=== PATIENT | male | born 1990 | race Hispanic/Latino ===

== ENCOUNTER 2024-02-25 17:52 | Emergency (ER) | payer MEDICARE, MEDICAID, SELFPAY ==
[2024-02-25 18:07] VITALS: BP 117/83
--- NOTE | 2024-02-25 18:07 | ED.PDOC.TR ---
ED Provider Triage
-
Patient seen by provider in Triage?: Seen in Triage
*Seen in triage to faciltiate intial workup*
33 yo male w/ hx of autism presents w/ parent for eval of urinary frequency. Pt c/o penile pain. Hx of prior UTI. No reported fever or abnml activity/appetite. Check UA. No indication for labs at this time
[2024-02-25 18:18] LABS: Urine Albumin Negative (Neg - Trace); Urine Bilirubin Negative (Negative); Urine Character Clear (Clear); Urine Color Yellow; Urine Glucose Negative (Negative); Urine Ketone Negative (Negative); Urine Leukocyte Negative (Negative); Urine Nitrite Negative (Negative); Urine Occult Blood Trace (Negative); Urine Specific Gravity 1.015 (<1.030); Urine Urobilinogen 1+ (Neg - 1+)
[2024-02-25 18:26] LABS: Urine Red Blood Cell 0-2 /HPF (0-2); Urine White Cell 0-2 /HPF (0-5)
--- NOTE | 2024-02-25 19:43 | ED.GENMED ---
History of Present Illness
General
Chief Complaint: Male Genito-Urinary Symptoms
Source: patient and family (Mother)
Exam Limitations: none
Time Seen by Provider: 02/25/24 19:28
Travel History
Have you had any contact with someone who has COVID-19?: No
Do you have any symptoms of coronavirus? Fever > 100 degrees, chills, cough, shortness of breath, sore throat, loss of taste or smell, muscle aches, or headache?: No
History of Present Illness
History of Present Illness:
33-year-old male presents with his mom for evaluation of urinary frequency and minimal burning. No fever chills no flank or back pain no discharge. Patient is not sexually active. Symptoms started today
Past History
Past History
ED Past Medical History: Other (Autism)
ED Past Surgical History: None
Social History
Tobacco: Non-smoker
Alcohol: None
Family History
Family History: Negative Diabetes
Review of Systems
Review of Systems
All Other Systems: Not applicable
Constitutional: Denies fever
ABD/GI: Reports no symptoms
Phy Exam
Physical Exam
Physical Exam:
GENERAL: Alert and oriented in no apparent distress
EYE: Orbits normal.
CARDIAC: Regular rate and rhythm without any obvious murmurs.
LUNGS: Clear breath sounds,normal
ABDOMEN: Soft, without focal tenderness or distention
: Testicles normal. Penis normal. No discharge no ulceration.
NEUROLOGICAL: Alert. Autistic. Following commands and ambulating well. Grossly nonfocal
SKIN: Warm and dry
PSYCH: Normal and appropriate interaction.
Course
Orders/Labs/Results
Orders:
Orders
02/25/24 18:13
Urinalysis Reflex To Culture Urgent
Date Specimen was Collected: 02/25/24
Time Specimen was Collected: 18:12
Comment: n
Urine Microscopic Reflex Cult Urgent
Chlamydia/GC by PCR Urgent
EZ Source: U
Specimen Description:
Date Specimen was Collected: 02/25/24
Time Specimen was Collected: 18:12
02/25/24 19:12
Add On- LAB Urgent
Tests Added?: chlamydia/gonorrhea
02/25/24 20:22
Basic Metabolic Panel Urgent
Complete Blood Count/With Diff Urgent
Abnormal Lab Results
02/25/24 02/25/24
18:13 20:22
Absolute Monos (auto) 0.8 H 10^3/uL
(0.1-0.6)
Ur Occult Blood Reflex Trace A
(Negative)
02/25/24 20:22
02/25/24 20:22
Vital Signs
Initial and Last Documented VS:
Initial Vital Signs
Pulse Resp BP Pulse Ox
82 18 117/83 100
02/25/24 18:07 02/25/24 18:07 02/25/24 18:07 02/25/24 18:07
Last Documented Vital Signs
Pulse Resp BP Pulse Ox
69 18 118/80 100
02/25/24 21:41 02/25/24 21:41 02/25/24 21:41 02/25/24 21:41
MDM/Problems Addressed
Differential Diagnosis Includes:
Mostly urinary frequency. Describes some slight burning. Nothing to support kidney stone. No flank or back pain. No blood in the urine. No CVA tenderness. Patient is not sexually active. Will check a CBC renal function and blood sugar.
*Critical Care Note
Total Time (30-74mins, 75-104mins- exclusive of procedures): Not Applicable
Update Note
Update Note:
Labs stable. Workup unremarkable. Discharged to follow-up
ED Attending Note
-
Portions of this chart may have been created with voice recognition software.� Occasional wrong word or��sound alike� substitutions may have occurred due to the inherent limitations of voice recognition software.
Discharge Plan
Departure
Patient Disposition: Home (Routine Discharge)
Date of Disposition: 02/25/24
Time of Disposition: 21:32
Patient with high blood pressure during this ER visit?: No
Discharge Problem:
Urinary frequency/dysuria
Prescriptions:
No Action
clonazepam 0.5 MG tablet
0.5 mg PO DAILY
cephalexin 500 MG capsule
500 mg PO QID Qty: 40 0RF
penicillin V potassium 500 MG tablet
500 mg PO QID Qty: 40 0RF
hydrocodone-acetaminophen 5 MG/500 MG tablet
1 tab PO .Q4-6HPRN PRN (Reason: PAIN) Qty: 12 0RF
cefdinir 300 mg capsule
300 mg PO BID Qty: 14 0RF
Referrals:
Manjeet Smith, DO [Family Provider] - Follow up in 2-3 days
Activity Restrictions/Additional Instructions:
Follow-up closely with his primary physician
Return sooner with fever increased pain with urination penile discharge flank or back pain or symptoms do not resolve in 1 to 3 days
Interventions
Interventions:
*Risk Screen - Suicide Last Done: 02/25/24 18:07
*General Assessment Last Done: 02/25/24 21:42
*Neglect/Abuse Screening Last Done: 02/25/24 18:07
ED- Fall Risk Assessment Last Done: 02/25/24 21:42
*ED COVID-19 Vaccine History Last Done: 02/25/24 18:07
*Nursing Disposition Last Done: 02/25/24 21:42
ED-Male Genitourinary Assessment Last Done: 02/25/24 20:07
Discharge Date and Time
Discharge Date/Time: 02/25/24 21:42
Print Language: SWAZI
[2024-02-25 20:30] LABS: % Basophils 0.5 % (0-2); % Eosinophils 2.7 % (0-6); % Immature Granulocytes 0.3 % (0-0.5); % Lymphocytes 32.4 % (20.5-51.1); % Monocytes 7.8 % (1.7-9.3); % Neutrophils 56.3 % (42.2-75.2); Absolute Basophils 0.1 10^3/uL (0-0.2); Absolute Eosinophils 0.3 10^3/uL (0-0.7); Absolute Lymphocytes 3.1 10^3/uL (1.2-3.4); Absolute Monocytes 0.8 10^3/uL (0.1-0.6); Absolute Neutrophils 5.4 10^3/uL (1.4-6.5); Hemoglobin 13.9 g/dL (13.0-18.0); Mean Corp Hgb Conc. 34.8 g/dL (33.0-37.0); Mean Corpuscular Hgb 29.3 pg (27.0-31.0); Mean Corpuscular Volume 84.4 fL (80.0-94.0); Mean Platelet Volume 9.9 fL (7.4-10.4); Nucleated Red Blood Cells % 0 % (-); Platelet Count 263 10^3/uL (130-400); Red Blood Cell Count 4.74 10^6/uL (4.70-6.10); Red Cell Dist. Width 12.3 % (11.5-14.5); White Blood Cell Count 9.6 10^3/uL (4.8-10.8)
[2024-02-25 20:51] LABS: Blood Urea Nitrogen 16 mg/dl (9-20); Calcium 9.3 mg/dl (8.4-10.2); Carbon Dioxide 24 mmol/L (22-30); Chloride 106 mmol/L (98-107); Glucose 85 mg/dl (70-99); Sodium 137 mmol/L (135-145); eGFR > 60.00
[2024-02-25 21:41] VITALS: BP 118/80
== END 2024-02-25 21:42 | disposition home or self-care (01) ==
LOC: EMR 17:52
PROVIDERS: Physician Assistant; EMERGENCY PHYSICIAN Emergency Medicine; FAMILY PHYSICIAN Family Medicine
DX: R35.0 Frequency of micturition (principal); R30.0 Dysuria; F84.0 Autistic disorder
CPT/HCPCS: 99283; 80048; 81003; 81015; 85025; 87491; 87591